=== PATIENT | female | born 1945 | race Caucasian/White ===

== ENCOUNTER 2024-03-30 10:36 | Outpatient (CLI) | payer MEDICARE | END 2024-03-30 10:37 | disposition home or self-care (01) | LOC: SCSRAD 10:36 | PROVIDERS: ATTEND Internal Medicine | DX: M54.2 Cervicalgia (principal); M54.9 Dorsalgia, unspecified; M47.812 Spondylosis without myelopathy or radiculopathy, cervical region | CPT/HCPCS: 72040; 72072 ==

== ENCOUNTER → 2024-05-24 | Day surgery (SDC) | payer MEDICARE ==
[2024-05-21 10:45] VITALS: BMI 22.4
[~2024-05-24] MED LIST: Lidocaine 2% PF 5 ML VIAL ONE; PROPOFOL 200 MG/20 ML VIAL ONE; Sevoflurane 250 ML INH ANEST BOTTLE ONE; fentaNYL 50 mcg/mL 1 mL Vial ONE
== END ==
LOC: MRI 12:07
PROVIDERS: ATTEND Psychiatry & Neurology Neurology
DX: M54.50 Low back pain, unspecified (principal); G62.9 Polyneuropathy, unspecified; K21.9 Gastro-esophageal reflux disease without esophagitis; J45.909 Unspecified asthma, uncomplicated; H91.90 Unspecified hearing loss, unspecified ear; I10 Essential (primary) hypertension; E78.5 Hyperlipidemia, unspecified; G47.33 Obstructive sleep apnea (adult) (pediatric); E07.9 Disorder of thyroid, unspecified; Z86.73 Personal history of transient ischemic attack (TIA), and cerebral infarction without residual deficits; Z90.49 Acquired absence of other specified parts of digestive tract; Z91.041 Radiographic dye allergy status; Z91.040 Latex allergy status; Z88.8 Allergy status to other drugs, medicaments and biological substances; Z88.1 Allergy status to other antibiotic agents; Z79.51 Long term (current) use of inhaled steroids; Z79.890 Hormone replacement therapy; Z79.899 Other long term (current) drug therapy; Z98.890 Other specified postprocedural states
CPT/HCPCS: 72148; J3010; J2704